=== PATIENT | female | born 1990 | race Caucasian/White ===

== ENCOUNTER 2022-02-13 11:30 | Observation (INO) ==
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
[~2022-02-13 11:30] MED LIST: LR 15ML/HR IV SCH
[2022-02-13] MEDS ORDERED: ROPIVACAINE 0.5% 5 MG/ML 30 ML VIAL ONE (12:53)
[2022-02-13] MEDS ORDERED: EPINEPHrine INJ 1 MG/ML AMP ONE (12:53)
--- NOTE | 2022-02-13 12:55 | History & Physical Bridge Note ---
Date of Service February 13, 2022 History & Physical Bridge Note I have examined the patient, reviewed the History & Physical and in the interval since the performance of the History & Physical I have noted the following changes of clinical significance: no changes noted
[2022-02-13] MEDS ORDERED: MIDAZOLAM HCL 1 MG/ML 2ML VIAL ONE (13:11)
[2022-02-13] MEDS ORDERED: fentaNYL citrate 100 MCG/2 ML VIAL ONE ×3 (13:11→15:34)
[2022-02-13] MEDS ORDERED: DexMEDEtomidine HCL IV 100 MCG/ML VIAL IV ONE (14:30)
[2022-02-13] MEDS ORDERED: ROCURONIUM BROMIDE 10 MG/ML 5 ML VIAL IV ONE (14:58)
[2022-02-13] MEDS ORDERED: GLYCOPYRROLATE 0.2 MG/ML VIAL ONE (14:58)
[2022-02-13] MEDS ORDERED: LIDOCAINE 2% 2 ML VIAL/AMP(20MG/ML) INFIL ONE (14:58)
[2022-02-13] MEDS ORDERED: PROPOFOL IV EMULSION 10 MG/ML 20 ML VIAL IV ONE (14:58)
[2022-02-13] MEDS ORDERED: NEOSTIGMINE METHYLSULFATE 1 MG/ML 10ML VIAL ONE (14:58)
[2022-02-13] MEDS ORDERED: ONDANSETRON INJ 2 MG/ML 2 ML VIAL ONE (14:58)
--- NOTE | 2022-02-13 15:46 | Fluoroscopy Report ---
FL clavicle RT CLINICAL HISTORY: ORIF RT CLAVICLE COMPARISON STUDY: Right clavicle radiographs December 15, 2021. FLUOROSCOPY TIME: 25 seconds. FLUOROSCOPIC IMAGES: 3 FINDINGS: Fluoroscopy was provided during open reduction and internal fixation of the right clavicula r fracture with plate and screws. Fracture alignment has improved and appears anatomic. There are no unexpected radiopaque foreign bodies. IMPRESSION: Fluoroscopy provided during open reduction and internal fixation of the right clavicular fracture with plate and screws. ACT 112: Negative or not required by law. Electronically signed by: Armando Chaves M.D. 02/13/2022 3:45 PM
[2022-02-13] MEDS ORDERED: FLUMAZENIL 0.1 MG/1 ML 10 ML VIAL IV PRN (15:48)
[2022-02-13] MEDS ORDERED: fentaNYL citrate 100 MCG/2 ML VIAL IV PRN (15:48)
[2022-02-13] MEDS ORDERED: ePHEDrine sulfate 50 MG/ML AMP IV PRN (15:48)
[2022-02-13] MEDS ORDERED: LABETALOL HCL IV 5 MG/ML 20ML IV PRN (15:48)
[2022-02-13] MEDS ORDERED: ATROPINE SULFATE 0.1 MG/ML 10ML SYR IV PRN (15:48)
[2022-02-13] MEDS ORDERED: ONDANSETRON INJ 2 MG/ML 2 ML VIAL IV PRN (15:48)
[2022-02-13] MEDS ORDERED: NALOXONE HCL 0.4 MG/1 ML VIAL/CARP IV PRN ×2 (15:48→17:57)
[2022-02-13] MEDS ORDERED: HYDROmorphone INJ 1 MG/ML SYRINGE IV PRN (15:48)
--- NOTE | 2022-02-13 15:57 | Post Operative Brief Note ---
Immediate Post Op Note v1 Date of Surgery February 13, 2022 Pre & Post Diagnosis Operation Date: 02/13/22 13:00 Pre-Op Diagnosis: Right Clavicle shaft Fracture, displaced with delayed healing Post-Op Diagnosis: Right Clavicle shaft Fracture, displaced with delayed healing I identified the patient and participated in the time-out.: Yes Procedure Operation Date: 02/13/22 13:00 Actual Procedures p Right Clavicle Open Reduction Internal Fixation(Right) - Bob Crane MD Surgeon Bob Crane MD Chemical Project Engineer Chandra ALFORD Estimated Blood Loss 20 Findings See Below Abundant callus but why displacement of the fragments of midshaft clavicle fracture with motion at the fracture site and fibrous tissue between ends of the fracture with motion at the fracture site Anesthesia Type General Regional Complications none Disposition Accompanied Patient To Recovery: No Disposition: Recovery Room Overlapping Procedure I was present for: the critical portions of procedure.
--- NOTE | 2022-02-13 16:49 | XRay Report ---
XR chest 1V portable CLINICAL HISTORY: s/p clavicle ORIF COMPARISON STUDY: Chest CT December 15, 2021. FINDINGS: Expected findings following internal fixation of the right clavicular fracture with plate a nd screws is noted. Multiple right-sided rib fractures are again noted. These were shown on chest CT of December 15, 2019. There is no pneumothorax. There may be a trace right pleural effusion. There is interstitial prominence without overt pulmonary edema. Mild to moderate elevation of the right hemidi aphragm is present. Cardiac size is normal. IMPRESSION: 1. Status post right clavicular open reduction and internal fixation. 2. Redemonstration of multiple right-sided rib fractures as shown on prior chest CT. No pneumothorax. Possible trace right pleural effusion. 3. Mild to moderate elevation of the right hemidiaphragm. 4. Interstitial prominence. This may reflect pulmonary vascular congestion. ACT 112: Negative or not required by law. Electronically signed by: Armando Chaves M.D. 02/13/2022 4:48 PM
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
--- NOTE | 2022-02-13 17:40 | Anesthesiology Progress Note ---
Date of Service February 13, 2022 Anesthesia Post Procedure Vital Signs Vital Signs: Temp Pulse Pulse Resp BP Pulse Ox 02/13/22 17:20 96 H 21 134/96 95 02/13/22 17:10 98 H 24 135/93 90 02/13/22 17:00 36.4 C L 95 H 22 152/93 H 92 02/13/22 16:50 96 H 23 152/94 H 96 02/13/22 16:40 101 H 28 H 146/98 H 95 02/13/22 16:30 98 H 29 H 132/92 96 02/13/22 16:20 96 H 29 H 136/89 92 02/13/22 16:16 36.3 C L 94 H 22 136/89 95 02/13/22 11:53 37.1 C 110 H 20 97 02/13/22 11:45 145/115 H Transfer of Care Handoff Completed per policy Notes Mental Status: alert / awake / arousable Patient Amnestic to Procedure: Yes Nausea / Vomiting: adequately controlled Pain: adequately controlled Airway Patency, RR, SpO2: stable & adequate BP & HR: stable & adequate Hydration State: stable & adequate Anesthetic Complications: no major complications apparent
[2022-02-13] MEDS ORDERED: HYDROmorphone INJ 0.5 MG/0.5 ML SYR IV PRN (17:57)
[2022-02-13] MEDS ORDERED: SUMAtriptan succinate 100 MG TAB PO PRN (17:57)
[2022-02-13] MEDS ORDERED: oxyCODONE HCL IR 5 MG TAB (IMMEDIATE RELEASE) PO PRN (17:57)
[2022-02-13] MEDS ORDERED: ALBUTEROL HFA 8 GM INHALER INH PRN (17:57)
[2022-02-13] MEDS ORDERED: clonazePAM 1 MG TAB PO PRN (17:57)
[2022-02-13] MEDS ORDERED: bisacodyL 10 MG SUPP PR PRN (17:57)
[2022-02-13] MEDS ORDERED: MAGNESIUM HYDROXIDE SUSP 30 ML UDC PO PRN (17:57)
[2022-02-13] MEDS ORDERED: diphenhydrAMINE 50 MG/ML VIAL IV PRN (17:57)
[2022-02-13] MEDS ORDERED: ACETAMINOPHEN 325 MG TAB PO PRN (17:57)
[2022-02-13] MEDS ORDERED: SODIUM CHLORIDE 0.9% 1000ML 1,000 ML IV SCH (17:57)
--- NOTE | 2022-02-13 19:08 | Orthopedic Progress Note ---
Date of Service February 13, 2022 Assessment & Plan (1) Clavicle fracture, shaft: Plan: Original plan was 23-hour observation due to initial postop not oxygenating well possibly due to nerve block and surgery with increased risk due to obesity and sleep apnea history. Patient condition improved and patient is having severe anxiety and agitated about staying in the hospital. She was going to sign out AMA. After reevaluation were are going to allow her to go home. She would not be alone and will be with her fianc. She only wants to take Tylenol for pain. Admission and Anticipated Discharge Date Admission Date: February 13, 2022 Subjective Patient upset that she is being admitted for 23-hour observation. She states she is feeling fine she has no pain is not short of breath. Physical Exam Physical Exam: Sling was malpositioned so I repositioned that appropriately. She can move her hand and fingers well at this time. Her bandages benign no drainage no blood stains on the bandage. Respiratory: she was breathing well, lung sounds were clear bilateral.I did not hear any rhonchi Results & Data ([facility]) Vital Signs (Past 12 Hours) Vital Signs Temp Pulse Pulse Resp BP Pulse Ox 02/13/22 17:40 37.0 C 96 H 21 119/83 98 02/13/22 17:20 96 H 21 134/96 95 02/13/22 17:10 98 H 24 135/93 90 02/13/22 17:00 36.4 C L 95 H 22 152/93 H 92 02/13/22 16:50 96 H 23 152/94 H 96 02/13/22 16:40 101 H 28 H 146/98 H 95 02/13/22 16:30 98 H 29 H 132/92 96 02/13/22 16:20 96 H 29 H 136/89 92 02/13/22 16:16 36.3 C L 94 H 22 136/89 95 02/13/22 11:53 37.1 C 110 H 20 97 02/13/22 11:45 145/115 H Diagnostic Findings Pulse oximeter checked and she was 96% on room air. Chest x-ray multiple old rib fractures no pneumothorax. Some diaphragmatic elevation. (1) Clavicle fracture, shaft Encounter type: subsequent encounter Fracture type: closed Fracture alignment: displaced Laterality: right Fracture healing: with nonunion Qualified Code(s): S42.021K - Displaced fracture of shaft of right clavicle, subsequent encounter for fracture with nonunion
[2022-02-13] MEDS ORDERED: BENZTROPINE MESYLATE 0.5 MG TAB PO SCH (21:00)
[2022-02-13] MEDS ORDERED: TOPIRAMATE 50 MG TAB PO SCH (21:00)
[2022-02-13] MEDS ORDERED: DOCUSATE SODIUM 100 MG CAP PO SCH (21:00)
[2022-02-13] MEDS ORDERED: GABAPENTIN 600 MG TAB PO SCH (21:00)
[2022-02-13] MEDS ORDERED: PRAZOSIN HCL 1 MG CAP PO SCH ×3 (21:00)
[2022-02-13] MEDS ORDERED: ceFAZolin 2000MG 2,000 MG/15 ML SYR IV SCH (21:30)
[2022-02-14] MEDS ORDERED: DULoxetine HCL 30 MG CAP PO SCH (09:00)
[2022-02-14] MEDS ORDERED: DULoxetine HCL 60 MG CAP PO SCH (09:00)
[2022-02-14] MEDS ORDERED: CALCIUM 600MG + VIT D 400 IU TAB PO SCH (09:00)
[2022-02-14] MEDS ORDERED: FLUTICASONE FUROATE 200MCG 14 PUFFS/INHALER INH SCH (09:00)
[2022-02-14] MEDS ORDERED: ASPIRIN 81 MG ECTAB PO SCH (09:00)
[2022-02-14] MEDS ORDERED: MULTIVITAMIN TAB PO SCH (09:00)
[2022-02-14] MEDS ORDERED: METHYLPHENIDATE HCL 5 MG TABLET PO SCH (13:00)
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
== END 2022-02-13 19:31 | disposition home or self-care (01) ==
LOC: ASU 11:30 → INTOOBSV 16:16 → 3W 16:16
DX: Z91.030 Bee allergy status; Z79.52 Long term (current) use of systemic steroids; S42.021K Displaced fracture of shaft of right clavicle, subsequent encounter for fracture with nonunion; Z91.013 Allergy to seafood; J45.909 Unspecified asthma, uncomplicated; I10 Essential (primary) hypertension; Z88.8 Allergy status to other drugs, medicaments and biological substances; Z79.899 Other long term (current) drug therapy; V89.0XXD Person injured in unspecified motor-vehicle accident, nontraffic, subsequent encounter; Z91.040 Latex allergy status; F17.210 Nicotine dependence, cigarettes, uncomplicated